=== PATIENT | female | born 1950 | race Caucasian/White ===

== ENCOUNTER → 2016-07-19 | Outpatient (REF) | payer MEDICARE | LOC: M LAB REF 12:49 | PROVIDERS: ATTEND Internal Medicine Medical Oncology | DX: C18.9 Malignant neoplasm of colon, unspecified (principal) ==

== ENCOUNTER → 2016-08-12 | Outpatient (CLI) | payer MEDICARE, OTHER ==
[~2016-08-12] MED LIST: GASTROGRAFIN SOLUTION 30ML (Q9963) As Ordered ONE; ISOVUE-370 76% 100ML VIAL (Q9967) As Ordered ONE
--- NOTE | 2016-08-12 13:31 | REP ---
CT ABDOMEN AND PELVIS WITHOUT AND WITH CONTRAST: 08/12/2016 CLINICAL HISTORY: Follow-up colon cancer. Evaluate for recurrence. Prior colon resection. COMPARISON: Prior studies in [place] are not available yet. TECHNIQUE: Oral Gastrografin mixture 10 mL in 290 mL of flavored water for two doses per our bowel contrast protocol. Precontrast scanning performed and bolus of 100 mL Isovue 370 scanning through the abdomen pelvis with delayed scanning through the abdomen. FINDINGS: CT ABDOMEN: Lung bases are clear. There is no hiatal hernia. There is no hepatosplenomegaly, focal hepatic or splenic lesion nor intrahepatic biliary dilatation. Gallbladder is surgically absent with clips in the fossa. Common duct shows normal diameter post cholecystectomy with no calcified stone. Pancreas without mass, ductal dilatation, stone or inflammatory change. Adrenal glands are normal. Stomach with some oral contrast without wall thickening or mass. Abdominal portion of the colon shows no colitis, diverticulitis, stricture or mass. There is no diverticulosis in the abdomen. Small bowel loops grossly intact. The aorta has calcifications scattered without aneurysm or dissection. No periaortic or other retroperitoneal pathologic sized lymphadenopathy. Lung window review of all CT slices shows no perforation, abscess or free air. Kidneys show function without obstruction, stone or mass. There is as couple of small cysts off the lower pole on the right. The smaller these is 9.6 mm. The larger cyst has some complex features with a possible septation or a vague calcification. The left kidney showed a tiny subcentimeter cortical cyst. No solid masses. There is no hydronephrosis or stone on either side. The ureters describe a normal course to the bladder without dilatation or stone. There are no inflammatory changes about the cecum. Appendix is absent. The bone windows show lumbar and lower thoracic spine without acute compression deformity of destructive lesion. There is some facet arthropathy in the lower lumbar spine. The marginal osteophytes are small. Visualized ribs intact. CT PELVIS: The bony hips, pelvis, sacrum and SI joints are unremarkable with only minimal degenerative change. Distal left colon shows no mass or stricture. There is an anastomotic suture line at the junction of the left colon and sigmoid from prior resection. There is no visible diverticulosis or diverticulitis. There is no adjacent mass or adenopathy. The external iliac chain lymph nodes unremarkable. The internal iliac lymph node chain also normal. There is no pathologic pelvic adenopathy. Bladder only partially filled. The ureters without stone or dilatation. Bladder without stone or mass. There is no ventral or inguinal hernia nor pathologic sized inguinal adenopathy. IMPRESSION: 1. Status post distal left colon and proximal sigmoid resection with anastomosis intact patent without stricture, mass or recurrent there or adenopathy. No adjacent fluid. No CT evidence of metastatic disease of the liver nor adenopathy. 2. Prior cholecystectomy. 3. Absent uterus with vaginal cuff intact. No renal, ureteral or bladder stone. No ascites, free air. Tiny splenule is noted adjacent to the spleen and is a benign finding about 13 mm. 4. Two cysts lower pole right kidney, one of them is somewhat complex with septation or subtle calcification. Ultrasound suggested. Signed by Khoi Fraser MD 08/12/2016 03:01 P
--- NOTE | 2016-08-12 15:06 | REP ---
CT CHEST WITH CONTRAST: 08/12/2016. Clinical history: Colon cancer, evaluate for recurrence. Comparison: Outside studies in [place] are not yet available. Technique: Bolus of 100 ml Isovue 370 and scanning through chest with coronal and sagittal reconstructions provided. Findings: The lung giron are well inflated. There is no definite pleural thickening, pleural based mass or calcific pleural plaque. Some minor apical parenchymal scarring in the anterior segment at the apex of the left upper lobe adjacent to the mediastinum. There is no pulmonary nodule, parenchymal mass or acute infiltrate. No effusion. Heart is not enlarged. There is no pericardial thickening or effusion. The aorta is without aneurysm or dissection. The main, right and left pulmonary arteries are intact. There is no pathologic sized mediastinal or hilar adenopathy. Main, right and left pulmonary arteries are without filling defect in the mediastinum. There is no axillary or supraclavicular mass. Bone windows show the sternum, manubrium, medial clavicles, humeral heads, glenohumeral joints, scapula, ribs and the vertebral bodies without fracture, destructive lesion. There are very minor anterior osteophytes in much of the mid-thoracic spine. Posterior elements were all intact. There is no paraspinal hematoma or focal chest wall abnormality. Impression: 1. No CT evidence of pulmonary parenchymal or mediastinal metastatic disease. Bones grossly intact. No chest wall abnormality. Nothing acute. Signed by Khoi Fraser MD 08/12/2016 03:07 P
== END ==
LOC: EDUNIT# 07-23 15:00 → M RAD 08:58
PROVIDERS: ATTEND Internal Medicine Medical Oncology
DX: Z85.038 Personal history of other malignant neoplasm of large intestine (principal)
CPT/HCPCS: 71260; 74178; Q9963; Q9967

== ENCOUNTER → 2016-08-23 | Outpatient (CLI) | payer MEDICARE, OTHER ==
--- NOTE | 2016-08-23 11:54 | REP ---
REASON: Evaluate tiny mass arising from the inferior pole of the right kidney on previous CT of 08/12/2016. The right kidney measures 9.7 x 4.5 x 4.3 cm. The renal cortical echoes are within normal limits. Cortical medullary differentiation is within normal limits. There is no hydronephrosis. Arising from the inferior pole region, there are two tiny echogenic foci, one measuring 1 cm and the other measuring 2 cm. The left kidney measures 10 x 4.7 x 4.6 cm. The renal cortical echoes are within normal limits. Cortical medullary differentiation is preserved. There are no cystic or solid masses. There is no hydronephrosis. IMPRESSION: Two tiny echogenic foci arising from the inferior pole region of the right kidney having the appearance of high fat containing lesions, probably incidental angiomyolipomas. Consider 3 month followup. Signed by Kale Lovell DO 08/23/2016 12:01 P
== END ==
LOC: M RAD 10:59
PROVIDERS: ATTEND Internal Medicine Medical Oncology
DX: N28.1 Cyst of kidney, acquired (principal)

== ENCOUNTER → 2016-12-21 | Outpatient (CLI) | payer MEDICARE, OTHER ==
--- NOTE | 2016-12-21 14:04 | REP ---
RENAL ULTRASOUND: Real-time sonographic evaluation of the kidneys performed and compared to prior study of 08/23/[address] 08/12/2016. Both kidneys are mildly atrophic, right kidney measuring 8.5 x 4.4 x 4.7 cm and left kidney 8.3 x 5.1 x 4.9 cm. There is no hydronephrosis bilaterally. Hyperechoic nodule in the lower pole of the right kidney measures 1.8 x 1.5 x 1.4 cm. This represents an angiomyolipoma on the CT scan. No other abnormalities are seen. 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 No change since the prior study of 08/23/2016. Signed by Tez Lund MD 12/21/2016 04:44 P
== END ==
LOC: M RAD 11:43
PROVIDERS: ATTEND Internal Medicine Medical Oncology
DX: N28.9 Disorder of kidney and ureter, unspecified (principal)

== ENCOUNTER → 2017-06-01 | Outpatient (REF) | payer MEDICARE, OTHER ==
[2017-06-03 14:18] LABS: CARCINOEMBRYONIC ANTIGEN < 0.5 NG/ML (<2.5)
== END ==
LOC: M LAB REF 20:00
DX: Z08 Encounter for follow-up examination after completed treatment for malignant neoplasm (principal); Z85.038 Personal history of other malignant neoplasm of large intestine; C77.0 Secondary and unspecified malignant neoplasm of lymph nodes of head, face and neck; C18.6 Malignant neoplasm of descending colon
CPT/HCPCS: 82378

== ENCOUNTER 2017-09-02 06:20 | Day surgery (SDC) | payer MEDICARE, OTHER ==
[2017-09-02] MEDS: NS 1,000 ML IV (07:17)
[2017-09-02] MEDS ORDERED: PROPOFOL 200 MG/20 ML VIAL As Ordered ×3 (07:20→08:30)
== END 2017-09-02 09:07 | disposition home or self-care (01) ==
LOC: M OPP 06:20
DX: Z12.11 Encounter for screening for malignant neoplasm of colon (principal); K64.0 First degree hemorrhoids; K57.30 Diverticulosis of large intestine without perforation or abscess without bleeding; Z98.0 Intestinal bypass and anastomosis status; Z85.038 Personal history of other malignant neoplasm of large intestine; K22.8 Other specified diseases of esophagus; K44.9 Diaphragmatic hernia without obstruction or gangrene; K31.7 Polyp of stomach and duodenum; I10 Essential (primary) hypertension; E78.00 Pure hypercholesterolemia, unspecified; E03.9 Hypothyroidism, unspecified; K21.9 Gastro-esophageal reflux disease without esophagitis; Z79.82 Long term (current) use of aspirin; Z79.899 Other long term (current) drug therapy; Z88.8 Allergy status to other drugs, medicaments and biological substances; Z87.891 Personal history of nicotine dependence
CPT/HCPCS: 45378

== ENCOUNTER → 2017-10-04 | Outpatient (CLI) | payer MEDICARE, OTHER | LOC: M PAIN 15:15 | DX: G89.29 Other chronic pain (principal); M51.16 Intervertebral disc disorders with radiculopathy, lumbar region; M46.1 Sacroiliitis, not elsewhere classified; I10 Essential (primary) hypertension; E78.00 Pure hypercholesterolemia, unspecified; K21.9 Gastro-esophageal reflux disease without esophagitis; M19.90 Unspecified osteoarthritis, unspecified site; Z85.038 Personal history of other malignant neoplasm of large intestine; Z87.891 Personal history of nicotine dependence; Z79.899 Other long term (current) drug therapy; Z88.2 Allergy status to sulfonamides; Z91.048 Other nonmedicinal substance allergy status | CPT/HCPCS: G0463 ==

== ENCOUNTER → 2017-11-15 | Outpatient (CLI) | payer MEDICARE, OTHER ==
[~2017-11-15] MED LIST changes: -GASTROGRAFIN SOLUTION 30ML (Q9963) As Ordered ONE; -ISOVUE-370 76% 100ML VIAL (Q9967) As Ordered ONE; +ISOVUE-M 300 61% 15ML VIAL (Q9967) As Ordered; +LIDOCAINE 1% SDV INJ 30 ML VIAL As Ordered; +diazePAM 5 MG TAB As Ordered; +methylPREDNISolone SUSP 40 MG/ML (DEPO-medrol) VIAL (J1030) As Ordered; +oxyCODONE 5MG TAB As Ordered
== END ==
LOC: M PAIN 08:30
DX: G89.29 Other chronic pain (principal); M51.16 Intervertebral disc disorders with radiculopathy, lumbar region; I10 Essential (primary) hypertension; E78.00 Pure hypercholesterolemia, unspecified; K21.9 Gastro-esophageal reflux disease without esophagitis; Z79.899 Other long term (current) drug therapy; Z88.3 Allergy status to other anti-infective agents; Z91.048 Other nonmedicinal substance allergy status; Z87.891 Personal history of nicotine dependence
CPT/HCPCS: J1030

== ENCOUNTER → 2017-12-07 | Outpatient (CLI) | payer MEDICARE, OTHER | LOC: M PAIN 10:00 | DX: M51.16 Intervertebral disc disorders with radiculopathy, lumbar region (principal); I10 Essential (primary) hypertension; E78.00 Pure hypercholesterolemia, unspecified; G47.30 Sleep apnea, unspecified; M19.90 Unspecified osteoarthritis, unspecified site; Z79.899 Other long term (current) drug therapy; Z88.2 Allergy status to sulfonamides; Z91.09 Other allergy status, other than to drugs and biological substances; Z85.038 Personal history of other malignant neoplasm of large intestine; Z87.891 Personal history of nicotine dependence | CPT/HCPCS: G0463 ==

== ENCOUNTER → 2018-01-04 | Outpatient (CLI) | payer MEDICARE, OTHER ==
[~2018-01-04] MED LIST changes: +BUPIVACAINE HCL 0.25% 30 ML VIAL As Ordered; +TRIAMCINOLONE ACETONIDE SUSP 40 MG/ML VIAL (J3301) As Ordered; -methylPREDNISolone SUSP 40 MG/ML (DEPO-medrol) VIAL (J1030) As Ordered
== END ==
LOC: M PAIN 11:15
DX: G89.29 Other chronic pain (principal); M47.816 Spondylosis without myelopathy or radiculopathy, lumbar region; M47.817 Spondylosis without myelopathy or radiculopathy, lumbosacral region; I10 Essential (primary) hypertension; E78.00 Pure hypercholesterolemia, unspecified; M19.90 Unspecified osteoarthritis, unspecified site; K21.9 Gastro-esophageal reflux disease without esophagitis; Z79.899 Other long term (current) drug therapy; Z88.2 Allergy status to sulfonamides; Z91.09 Other allergy status, other than to drugs and biological substances; Z87.891 Personal history of nicotine dependence; Z85.038 Personal history of other malignant neoplasm of large intestine
CPT/HCPCS: J3301

== ENCOUNTER → 2018-03-01 | Outpatient (CLI) | payer MEDICARE, OTHER | LOC: M PAIN 11:30 | DX: M47.816 Spondylosis without myelopathy or radiculopathy, lumbar region (principal); M47.817 Spondylosis without myelopathy or radiculopathy, lumbosacral region; I10 Essential (primary) hypertension; E78.00 Pure hypercholesterolemia, unspecified; K21.9 Gastro-esophageal reflux disease without esophagitis; M19.90 Unspecified osteoarthritis, unspecified site; Z79.899 Other long term (current) drug therapy; Z88.2 Allergy status to sulfonamides; Z91.09 Other allergy status, other than to drugs and biological substances; Z85.038 Personal history of other malignant neoplasm of large intestine | CPT/HCPCS: G0463 ==

== ENCOUNTER → 2018-05-18 | Outpatient (REF) | payer MEDICARE, OTHER ==
[~2018-05-18] MED LIST changes: +ASPI81TA52 PO; +ATOR40TA75 PO; -BUPIVACAINE HCL 0.25% 30 ML VIAL As Ordered; +D 50CAP PO; +DULO1CAP2 PO; +DULO1CAP3 PO; -ISOVUE-M 300 61% 15ML VIAL (Q9967) As Ordered; -LIDOCAINE 1% SDV INJ 30 ML VIAL As Ordered; +METO25TA4 PO; +PANT40TA3 PO; +SYNT75TA PO; -TRIAMCINOLONE ACETONIDE SUSP 40 MG/ML VIAL (J3301) As Ordered; -diazePAM 5 MG TAB As Ordered; -oxyCODONE 5MG TAB As Ordered
[2018-05-18 12:43] LABS: PERCENT SATURATION 23.8 % (13.2-45.0)
== END ==
LOC: M LAB REF 11:46
PROVIDERS: ATTEND Internal Medicine
DX: L65.9 Nonscarring hair loss, unspecified (principal)

== ENCOUNTER → 2018-07-03 | Outpatient (REF) | payer MEDICARE, OTHER ==
[2018-07-05 10:27] LABS: TESTOSTERONE FREE (DIRECT) 2.6 pg/mL (0.0-4.2)
== END ==
LOC: M LABDRAW1 15:17
PROVIDERS: ATTEND Internal Medicine Endocrinology, Diabetes & Metabolism
DX: L65.9 Nonscarring hair loss, unspecified (principal)

== ENCOUNTER → 2018-12-06 | Outpatient (REF) | payer MEDICARE, OTHER ==
[~2018-12-06] MED LIST changes: -DULO1CAP2 PO; -DULO1CAP3 PO; +DULO1CAP5 PO; +DULO1CAP6 PO
== END ==
LOC: M LAB REF 16:22
PROVIDERS: ATTEND Internal Medicine
DX: M54.5 Low back pain (principal); N39.0 Urinary tract infection, site not specified

== ENCOUNTER → 2018-12-28 | Outpatient (REF) | payer MEDICARE, OTHER ==
[2018-12-28 16:18] LABS: CREATININE FOR GFR 1.08 MG/DL (0.55-1.30); GLOMERULAR FILTRATION RATE 53.9 (>45)
== END ==
LOC: M LABDRAW1 11:46
PROVIDERS: ATTEND Orthopaedic Surgery
DX: M50.30 Other cervical disc degeneration, unspecified cervical region (principal)

== ENCOUNTER → 2019-10-15 | Outpatient (REF) | payer MEDICARE, OTHER ==
[~2019-10-15] MED LIST changes: +ASPI81CH33 PO; +HYZA50TA2 PO; +METF-839 PO; +NEUR300C PO; +PANT40TA29 PO; -PANT40TA3 PO; +VITA500030 PO
[2019-10-15 18:22] LABS: APPEARANCE, URINE CLEAR (CLEAR); BACTERIA, URINE AUTO 1+ (NEGATIVE); BILIRUBIN, URINE AUTO NEGATIVE (NEGATIVE); BLOOD, URINE BLOOD NEGATIVE (NEGATIVE); COLOR, URINE YELLOW (YELLOW); GLUCOSE, URINE (UA) AUTO NEGATIVE (NEGATIVE); KETONE, URINE AUTO NEGATIVE (NEGATIVE); LEUKOCYTE ESTERASE, URINE AUTO TRACE (NEGATIVE); MUCUS, URINE SMALL (NEGATIVE); NITRITE, URINE AUTO NEGATIVE (NEGATIVE); PROTEIN, URINE AUTO NEGATIVE (NEGATIVE); RBC, URINE AUTO 1 /HPF (0-3); SPECIFIC GRAVITY URINE AUTO 1.018 (1.002-1.035); SQUAMOUS EPITHELIAL CELL UR AU 3 /HPF (0-6); WBC, URINE AUTO 2 /HPF (0-3)
[2019-10-15 18:27] LABS: INR 0.95; PROTHROMBIN TIME 12.4 SECONDS (11.8-14.0)
[2019-10-15 18:28] LABS: PARTIAL THROMBOPLASTIN TIME 28.9 SECONDS (25.0-38.4)
== END ==
LOC: M LAB REF 16:21
PROVIDERS: ATTEND Internal Medicine
DX: Z01.818 Encounter for other preprocedural examination (principal); M54.9 Dorsalgia, unspecified

== ENCOUNTER → 2020-07-10 | Outpatient (CLI) | payer MEDICARE, OTHER ==
[~2020-07-10] MED LIST changes: +D31000TA2 PO
--- NOTE | 2020-07-10 15:06 | REP ---
INDICATION: STERIO BX/RIGHT BREAST MICROCAL/CK CLIP PLACEMENT. Marker clip placement views. COMPARISON: Comparison mammography 05 June 2020. TECHNIQUE: Craniocaudal and mediolateral views of the right breast are obtained. FINDINGS: Craniocaudal and mediolateral views of the right breast demonstrate that the needle biopsy marker clip is in good position at the site where previous mammography showed the microcalcification. These microcalcifications have been removed with the biopsy. IMPRESSION: Marker clip in good position. <Electronically signed by Rhett Lopez > 07/10/20 [id number]
--- NOTE | 2020-07-10 15:07 | REP ---
INDICATION: STERIO BX/RIGHT BREAST MICROCAL/CK CLIP PLACEMENT. Stereotactic needle biopsy for microcalcifications observed mammographically on 05 June 2020 mammographies. COMPARISON: 05 June 2020.. TECHNIQUE: Single-view specimen radiograph. FINDINGS: The micro calcific target is contained within the 2nd removed specimen on specimen radiography. IMPRESSION: Specimen radiograph demonstrates the targeted calcifications. <Electronically signed by Rhett Lopez > 07/10/20 [id number]
[2020-07-10 15:22] VITALS: BP 140/72
--- NOTE | 2020-07-10 16:22 | REP ---
INDICATION: STERIO BX/RIGHT BREAST MICROCAL/CK CLIP PLACEMENT. COMPARISON: None. TECHNIQUE: This procedure is performed by Sherri Ventura [facility], under the direct supervision of Dr. Lopez. The risks and benefits of the procedure were explained to the patient and informed consent was obtained both verbally and written. Directly prior to the start of the procedure, a formal timeout was done in the procedure room. The cranial caudal approach was utilized on the prone table. The right breast microcalcifications were localized using mammographic guidance. The skin was prepped and draped in a sterile fashion. Four ml of buffered lidocaine 1% lidocaine 10 mg/ml was used as a local anesthetic. FINDINGS: A 10 gauge mammotome suction assisted biopsy device was inserted and advanced into the breast lesion and 6 core biopsy samples were obtained. A marker clip was placed at the biopsy site. The patient tolerated the procedure well and there were no immediate complications. After the appropriate amount of monitored convalescence the patient was discharged from the department. IMPRESSION: Right breast biopsy with micro clip placement under stereotactic guidance. <Electronically signed by Sherri Ventura > 07/10/20 1504 <Electronically signed by Rhett Lopez > 07/10/20 [id number]
== END ==
LOC: M WHC 13:28
PROVIDERS: ATTEND Specialist
DX: N60.11 Diffuse cystic mastopathy of right breast (principal)

== ENCOUNTER → 2020-07-15 | Outpatient (CLI) | payer MEDICARE, OTHER ==
[2020-07-15 11:50] VITALS: BP 132/68
--- NOTE | 2020-07-15 15:52 | REP ---
INDICATION: LEFT AXILLARY BX/LEFT AXILLARY NODULE. COMPARISON: None. TECHNIQUE: The procedure was performed by CHARLES Hamilton, under the direct supervision of Dr. Lopez. The risks and benefits of the procedure were explained to the patient and an informed consent was obtained both verbally and written. Directly prior to the start of the procedure a formal time-out was completed in the procedure room. FINDINGS: Using ultrasound guidance the well circumscribed palpable echogenic mass in the left axilla/proximal humerus was localized. The skin was prepped and draped in a sterile fashion. Ten mL of buffered lidocaine was used as a local anesthetic. Using ultrasound guidance a 19/20 gauge coaxial needle biopsy system was inserted and advanced into the echogenic mass. Six core biopsy specimens were obtained and sent to pathology for further analysis. The patient tolerated the procedure well and there were no immediate complications. After the appropriate amount of monitored convalescence the patient was discharged from the department. IMPRESSION: 1. Ultrasound-guided left axillary/proximal humeral palpable lump biopsy. <Electronically signed by Sherri Ventura > 07/15/20 1507 <Electronically signed by Rhett Lopez > 07/15/20 1542
== END ==
LOC: M WHCPRO 10:17
PROVIDERS: ATTEND Specialist
DX: R22.9 Localized swelling, mass and lump, unspecified (principal)

== ENCOUNTER → 2020-07-22 | Outpatient (REF) | payer MEDICARE, OTHER | LOC: M LAB REF 16:32 | PROVIDERS: ATTEND Internal Medicine | DX: N39.0 Urinary tract infection, site not specified (principal) ==

== ENCOUNTER → 2020-11-05 | Outpatient (CLI) | payer MEDICARE, OTHER ==
[2020-11-05 17:26] LABS: BASO # 0.1 10^3/uL (0.0-0.2); BASO % 0.7 % (0.0-1.0); EOS # 0.1 10^3/uL (0.0-0.5); HEMATOCRIT 46.8 % (36.0-47.0); HEMOGLOBIN 14.7 g/dl (12.0-15.5); LYMPH # 1.9 10^3/uL (1.5-5.0); MEAN CORPUSCULAR HEMOGLOBIN 29.4 pg (27.0-33.0); MEAN CORPUSCULAR HGB CONC 31.4 g/dl (32.0-36.5); MEAN CORPUSCULAR VOLUME 93.6 fl (80.0-96.0); MONO # 0.4 10^3/uL (0.0-0.8); MONO % 6.4 % (2.0-8.0); NEUTROPHILS # 4.3 10^3/uL (1.5-8.5); NEUTROPHILS % 63.6 % (36.0-66.0); PLATELET COUNT, AUTOMATED 253 10^3/uL (150-450); WHITE BLOOD COUNT 6.8 10^3/uL (4.0-10.0)
[2020-11-05 17:58] LABS: HEMOGLOBIN A1c 5.8 %
[2020-11-05 18:04] LABS: ALBUMIN 3.7 GM/DL (3.2-5.2); BILIRUBIN,TOTAL 1.1 MG/DL (0.2-1.0); CALCIUM LEVEL 9.5 MG/DL (8.8-10.2); CHOLESTEROL RISK RATIO 3.076 (<5); CREATININE FOR GFR 1.05 MG/DL (0.55-1.30); FREE T4 1.28 NG/DL (0.76-1.46); GLOMERULAR FILTRATION RATE 55.3 (>45); MAGNESIUM LEVEL 2.3 MG/DL (1.8-2.4); POTASSIUM SERUM 4.7 MEQ/L (3.5-5.1); THYROID STIMULATING HORMONE 0.492 uIU/ML (0.358-3.740)
== END ==
LOC: M PLALAB 14:10
PROVIDERS: ATTEND Nurse Practitioner Family
DX: E78.5 Hyperlipidemia, unspecified (principal); I10 Essential (primary) hypertension; E04.1 Nontoxic single thyroid nodule; E11.9 Type 2 diabetes mellitus without complications; R06.02 Shortness of breath

== ENCOUNTER → 2021-03-06 | Outpatient (CLI) | payer MEDICARE, OTHER ==
[2021-03-06 12:32] LABS: C REACTIVE PROTEIN QUANTITATIV 0.56 MG/DL (0.00-0.30); RHEUMATOID FACTOR QUANT < 10.0 IU/ML (<15.0)
[2021-03-07 19:07] LABS: ANTINUCLEAR ANTIBODIES DIRECT Negative (Negative)
== END ==
LOC: M PLALAB 10:49
PROVIDERS: ATTEND Nurse Practitioner Family
DX: R52 Pain, unspecified (principal)

== ENCOUNTER → 2021-03-20 | Outpatient (CLI) | payer MEDICARE, OTHER ==
[~2021-03-20] MED LIST changes: +HYDR12CA PO; +LOSA50TA88 PO
== END ==
LOC: M LABSMTC 10:54
PROVIDERS: ATTEND Anesthesiology
DX: Z01.812 Encounter for preprocedural laboratory examination (principal); Z20.822 Contact with and (suspected) exposure to COVID-19

== ENCOUNTER 2021-03-25 06:38 | Day surgery (SDC) | payer MEDICARE, OTHER ==
[~2021-03-25] VITALS: Ht 165.1 cm; Wt 97.9 kg
[~2021-03-25 06:38] MED LIST changes: +LOSA50TA28 PO; -LOSA50TA88 PO
[2021-03-25] MEDS ORDERED: NS 1,000 ML IV ONE (07:55)
[2021-03-25] MEDS ORDERED: propofoL 200 MG/20 ML VIAL As Ordered ONE (08:16)
[2021-03-25 08:57] VITALS: BP 127/73
== END 2021-03-25 09:00 | disposition home or self-care (01) ==
LOC: M OPP 06:38
PROVIDERS: ATTEND Internal Medicine Gastroenterology
DX: D12.2 Benign neoplasm of ascending colon (principal); K64.0 First degree hemorrhoids; Z85.038 Personal history of other malignant neoplasm of large intestine; Z98.0 Intestinal bypass and anastomosis status; I10 Essential (primary) hypertension; E03.9 Hypothyroidism, unspecified; E78.5 Hyperlipidemia, unspecified; Z88.2 Allergy status to sulfonamides; Z91.040 Latex allergy status; Z79.899 Other long term (current) drug therapy

== ENCOUNTER → 2021-07-01 | Outpatient (CLI) | payer MEDICARE, OTHER ==
[~2021-07-01] MED LIST changes: -D31000TA2 PO; +VITA100093 PO
== END ==
LOC: M PLAIMG 14:05 → M PLALAB 14:05
PROVIDERS: ATTEND Nurse Practitioner Family
DX: M79.89 Other specified soft tissue disorders (principal)

== ENCOUNTER → 2021-07-17 | Outpatient (REF) | payer MEDICARE, OTHER | LOC: M SFHCPLAZ 17:01 | PROVIDERS: ATTEND Physician Assistant | DX: J01.80 Other acute sinusitis (principal) ==

== ENCOUNTER → 2021-09-25 | Outpatient (CLI) | payer MEDICARE, OTHER ==
[~2021-09-25] MED LIST changes: +LATA0.0015; +REFR1DRO8 OP
== END ==
LOC: M PLAIMG 11:09
PROVIDERS: ATTEND Nurse Practitioner Family
DX: M25.532 Pain in left wrist (principal)

== ENCOUNTER → 2021-10-16 | Outpatient (CLI) | payer MEDICARE, OTHER | LOC: M WHC 11:04 | PROVIDERS: ATTEND Nurse Practitioner Family | DX: R92.8 Other abnormal and inconclusive findings on diagnostic imaging of breast (principal) | CPT/HCPCS: 77066; G0279 ==

== ENCOUNTER → 2022-02-11 | Outpatient (CLI) | payer MEDICARE, OTHER ==
[~2022-02-11] MED LIST changes: -HYZA50TA2 PO; +LOSA-532 PO
[2022-02-11 15:41] LABS: BASO # 0.1 10^3/uL (0.0-0.2); BASO % 1.3 % (0.0-1.0); EOS # 0.1 10^3/uL (0.0-0.5); EOS % 1.4 % (0.0-3.0); HEMATOCRIT 45.6 % (36.0-47.0); HEMOGLOBIN 14.2 g/dl (12.0-15.5); LYMPH # 1.9 10^3/uL (1.5-5.0); LYMPH % 29.6 % (24.0-44.0); MEAN CORPUSCULAR HEMOGLOBIN 29.4 pg (27.0-33.0); MEAN CORPUSCULAR HGB CONC 31.1 g/dl (32.0-36.5); MEAN CORPUSCULAR VOLUME 94.4 fl (80.0-96.0); MONO # 0.5 10^3/uL (0.0-0.8); MONO % 7.9 % (2.0-8.0); NEUTROPHILS # 3.8 10^3/uL (1.5-8.5); NEUTROPHILS % 59.5 % (36.0-66.0); PLATELET COUNT, AUTOMATED 382 10^3/uL (150-450); RED BLOOD COUNT 4.83 10^6/uL (4.00-5.40); WHITE BLOOD COUNT 6.3 10^3/uL (4.0-10.0)
[2022-02-11 16:41] LABS: ALBUMIN 3.4 GM/DL (3.2-5.2); CALCIUM LEVEL 9.3 MG/DL (8.8-10.2); CHOLESTEROL RISK RATIO 3.416 (<5); CREATININE FOR GFR 1.11 MG/DL (0.55-1.30); FREE T4 1.25 NG/DL (0.76-1.46); GLOMERULAR FILTRATION RATE 51.7 (>39); POTASSIUM SERUM 4.6 MEQ/L (3.5-5.1); THYROID STIMULATING HORMONE 0.735 uIU/ML (0.358-3.740); TOTAL PROTEIN 6.8 GM/DL (6.4-8.2)
[2022-02-11 16:46] LABS: MAU/CREAT RATIO 11.6 MCG/MG (0.0-30.0)
[2022-02-11 17:32] LABS: TOTAL 25(OH) VITAMIN D 81.8 NG/ML (30.0-100.0)
[2022-02-11 17:34] LABS: HEMOGLOBIN A1c 5.9 %
== END ==
LOC: M PLALAB 12:24
PROVIDERS: ATTEND Nurse Practitioner Family
DX: G62.9 Polyneuropathy, unspecified (principal); I10 Essential (primary) hypertension; E89.0 Postprocedural hypothyroidism; E78.5 Hyperlipidemia, unspecified; E11.9 Type 2 diabetes mellitus without complications; E55.9 Vitamin D deficiency, unspecified; Z79.899 Other long term (current) drug therapy

== ENCOUNTER → 2022-02-23 | Outpatient (CLI) | payer MEDICARE, OTHER | LOC: M PLAIMG 11:40 | PROVIDERS: ATTEND Nurse Practitioner Family | DX: M25.762 Osteophyte, left knee (principal) ==

== ENCOUNTER → 2022-08-11 | Outpatient (REF) | payer MEDICARE, OTHER | LOC: M SFHCPLAZ 10:19 | PROVIDERS: ATTEND Nurse Practitioner Family | DX: E78.5 Hyperlipidemia, unspecified (principal); I10 Essential (primary) hypertension; E11.9 Type 2 diabetes mellitus without complications; G62.9 Polyneuropathy, unspecified; E55.9 Vitamin D deficiency, unspecified ==

== ENCOUNTER → 2022-09-15 | Outpatient (REF) | payer MEDICARE, OTHER ==
[2022-09-15 13:48] LABS: APPEARANCE, URINE CLEAR (CLEAR); BACTERIA, URINE AUTO NEGATIVE (NEGATIVE); BILIRUBIN, URINE AUTO NEGATIVE (NEGATIVE); BLOOD, URINE BLOOD NEGATIVE (NEGATIVE); COLOR, URINE YELLOW (YELLOW); GLUCOSE, URINE (UA) AUTO NEGATIVE (NEGATIVE); KETONE, URINE AUTO NEGATIVE (NEGATIVE); LEUKOCYTE ESTERASE, URINE AUTO NEGATIVE (NEGATIVE); NITRITE, URINE AUTO NEGATIVE (NEGATIVE); PROTEIN, URINE AUTO NEGATIVE (NEGATIVE); RBC, URINE AUTO 1 /HPF (0-3); SPECIFIC GRAVITY URINE AUTO 1.015 (1.002-1.035); SQUAMOUS EPITHELIAL CELL UR AU 1 /HPF (0-6); UROBILINOGEN, URINE AUTO 0.2 mg/dL (0.0-2.0); WBC, URINE AUTO 1 /HPF (0-3)
== END ==
LOC: M SMT 13:20
PROVIDERS: ATTEND Urology
DX: R35.1 Nocturia (principal)

== ENCOUNTER → 2023-09-09 | Outpatient (CLI) | payer OTHER ==
[~2023-09-09] MED LIST changes: -REFR1DRO8 OP; +REFR1DRO8 OU
[2023-09-09 16:11] LABS: BASO # 0.1 10^3/uL (0.0-0.2); BASO % 0.8 % (0.0-1.0); EOS # 0.1 10^3/uL (0.0-0.5); EOS % 1.6 % (0.0-3.0); HEMATOCRIT 46.9 % (36.0-47.0); LYMPH # 1.8 10^3/uL (1.5-5.0); LYMPH % 27.7 % (24.0-44.0); MEAN CORPUSCULAR HEMOGLOBIN 30.4 pg (27.0-33.0); MEAN CORPUSCULAR VOLUME 95.1 fl (80.0-96.0); MONO # 0.5 10^3/uL (0.0-0.8); MONO % 7.5 % (2.0-8.0); NEUTROPHILS % 61.9 % (36.0-66.0); PLATELET COUNT, AUTOMATED 270 10^3/uL (150-450); RED BLOOD COUNT 4.93 10^6/uL (4.00-5.40); WHITE BLOOD COUNT 6.4 10^3/uL (4.0-10.0)
[2023-09-09 16:29] LABS: CREATININE, URINE 150.2 MG/DL; MAU/CREAT RATIO 3.3 MCG/MG (0.0-30.0)
[2023-09-09 16:41] LABS: ALBUMIN 3.3 G/DL (3.2-5.2); CALCIUM LEVEL 9.8 MG/DL (8.3-10.6); CHOLESTEROL RISK RATIO 3.06 (<5); CREATININE FOR GFR 1.17 MG/DL (0.55-1.30); GLOMERULAR FILTRATION RATE 48.5 (>39); HDL CHOLESTEROL 49.2 MG/DL (>40); LDL CHOLESTEROL 80.8 MG/DL (<100); NON-HDL-C 101.8 MG/DL; POTASSIUM SERUM 4.8 MMOL/L (3.5-5.1); TOTAL PROTEIN 6.5 G/DL (5.7-8.2)
[2023-09-09 16:43] LABS: TOTAL 25(OH) VITAMIN D 55.4 NG/ML (20.0-100.0)
[2023-09-09 16:49] LABS: HEMOGLOBIN A1c 5.4 % (4.0-6.0)
== END ==
LOC: M PLALAB 13:38
PROVIDERS: ATTEND Nurse Practitioner Family
DX: I10 Essential (primary) hypertension (principal); E11.9 Type 2 diabetes mellitus without complications; E78.5 Hyperlipidemia, unspecified; E55.9 Vitamin D deficiency, unspecified